=== PATIENT | female | born 1995 | race Caucasian/White ===

== ENCOUNTER 2018-11-01 11:03 | Outpatient (REF) | payer MEDICAID, SELFPAY ==
--- NOTE | 2018-11-01 10:45 | PAPFT_PTH ---
PATIENT: Karla Garcia LOC: [facility] U#:[id number] AGE/SX: 23/F ROOM: RE11/01/[address]: BRIAN Woody : 1995 BED: DIS: 11/01/2018 SPEC #: [id number] RECD: 11/01/18 17:38 STATUS: TIFFANY RERober #: [id number] ERIK: 11/01/18 10:[address]: Christina Pryor DEPT: [facility] Cytology RECD BY: Izabela Barragan ENTERED: 11/01/18 17:39 SP TYPE: PAPFT DARIUS DR: Fernanda Michael APRN Tissues: 1 - CX/ENDOCX FOR PAP SMEARS Procedures: PAP THIN PREP/UVM Screening Comments: [id number]
== END 2018-11-01 11:23 ==
LOC: LBN 11:03
PROVIDERS: PCP Nurse Practitioner; Visit Provider Nurse Practitioner Family
DX: Z12.4 Encounter for screening for malignant neoplasm of cervix (principal)
CPT/HCPCS: 88142

== ENCOUNTER 2019-01-30 17:33 | Emergency (ER) | payer MEDICAID, SELFPAY ==
[2019-01-30 17:38] VITALS: BP 125/76; PULSE 87; RESP 16; O2SAT 99
[2019-01-30 18:16] LABS: Abs Immature Grans 0.01 k/cumm (0.0-0.09); Absolute Basophil Count 0.04 k/cumm (0.0-0.2); Absolute Eosinophil Count 0.38 k/cumm (0.0-0.7); Absolute Lymphocyte Count 1.89 k/cumm (1.2-3.4); Absolute Monocyte Count 0.46 k/cumm (0.11-0.7); Absolute Neutrophil Count 4.44 k/cumm (1.2-6.7); Basophils % 0.6; Eosinophils % 5.3; HCT 39.7 % (36.0-46.0); HGB 13.4 g/dL (12.0-15.5); Immature Grans % 0.1; Lymphocytes % 26.2; Mean Corp. HGB Concentration 33.8 g/dL (32.0-36.0); Mean Corpuscular Hemoglobin 28.9 pg (27.0-33.0); Mean Corpuscular Volume 85.6 fL (80-95); Mean Platelet Volume 10.8 fL (8.0-11.0); Monocytes % 6.4; Neutrophils % 61.4; Platelet Count 315 x1000/uL (130-400); RBC 4.64 m/cumm (4.00-5.20); White Blood Cell Count 7.22 k/cumm (4.4-10.8)
--- NOTE | 2019-01-30 18:30 | W.ED.GENAD ---
Discharge Plan Disposition Patient Disposition: HOME Condition: Stable Discharge Details Chief Complaint: TIN DIPPER Clinical Impression: Vaginal bleeding in Primary Care Provider: Fernanda Michael ED Provider: Jo Castillo Home Meds and New Rx's Prescriptions: No Action No Known Home Meds RF: 0 Discharge Instructions Instructions: Miscarriage (ED), Threatened Miscarriage (ED) Additional Instructions: Please return immediately to the emergency department if you develop any new or worsening symptoms or if you become otherwise concerned. It is extremely important that you call as soon as possible to make an appointment to be seen in follow-up for this visit by your human resources support specialist. Referrals: Teena Sandoval MD [ [facility] STAFF PHYSICIAN] - Discharge Data Discharge Date/Time-TO BE ENTERED AT DEPARTURE: 01/30/19 19:50 Medical Decision Making Karla Whipple is a 23-year-old woman without history of medical problems who presented to the emergency department with positive test 1 week ago, last menstrual. 5 weeks ago, now with vaginal bleeding that began this morning equivalent to her typical., Also with lower abdominal cramping typical of her usual menstrual cramps. On exam patient is very well and nontoxic appearing. She has a benign cardiopulmonary exam. Abdominal exam is benign, nontender to palpation. Concern for threatened versus ectopic. Plan for screening labs. hCG 18. Bedside [id number] ultrasound FAST exam negative for free fluid, ultrasound shows thickened endometrial stripe without gestational sac, adnexa unable to be visualized transabdominally. I discussed the patient presentation, exam, and results with Dr. Sandoval of obstetrics who recommended outpatient follow-up, very low suspicion for ectopic at this point, emergent transvaginal ultrasound not essential and very unlikely to be diagnostic. I discussed transvaginal ultrasound with the patient, who refuses pelvic exam/transvaginal ultrasound at this time and would prefer to follow-up as an outpatient. I discussed the risks of potential ectopic, patient verbalized understanding the risks and continue to refuse. I had a lengthy discussion with the patient regarding return to emergency department precautions, importance of outpatient follow-up with collar feller, and home care. Patient verbalized understanding of the plan and was amenable. All questions were answered. Patient was discharged home with clear plan for outpatient follow-up. Medical Records Medical records reviewed: Yes I reviewed the patient's medical records. Lab Data Lab results reviewed: Yes I reviewed the patient's lab results. Labs: Laboratory Tests Range/Units 01/30/19 01/30/19 01/30/19 18:06 18:06 18:06 WBC (4.4-10.8) k/cumm 7.22 RBC (4.00-5.20) m/cumm 4.64 Hgb (12.0-15.5) g/dL 13.4 Hct (36.0-46.0) % 39.7 MCV (80-95) fL 85.6 MCH (27.0-33.0) pg 28.9 MCHC (32.0-36.0) g/dL 33.8 RDW (11.7-14.6) % 13.0 Plt Count (130-400) x1000/uL 315 MPV (8.0-11.0) fL 10.8 Immature Gran % 0.1 Neutrophils % 61.4 Lymphocytes % 26.2 Monocytes % 6.4 Eosinophils % 5.3 Basophils % 0.6 Absolute Neutrophils (1.2-6.7) k/cumm 4.44 Absolute Lymphocytes (1.2-3.4) k/cumm 1.89 Absolute Monocytes (0.11-0.7) k/cumm 0.46 Absolute Eosinophils (0.0-0.7) k/cumm 0.38 Absolute Basophils (0.0-0.2) k/cumm 0.04 Beta HCG, Quant (1-3) mIU/mL 18 H Patient ABO/Rh B Positive Antibody Screen Negative HPI General Mode of arrival: ambulatory. Date/Time Provider Initiated Documentation: 01/30/19 17:54. Limitations to Documentation: no limitations. Information obtained by: patient, family, RN notes reviewed and old records reviewed. HPI Narrative: Karla Whipple is a 23-year-old woman presenting to the emergency department with vaginal bleeding. Patient reports that her last menstrual period was 5 weeks ago. Patient states that she had a positive test 1 week ago. She has not had an ultrasound performed at this point. Patient reports that she woke up this morning and had vaginal bleeding. She has gone through 1.5 pads. Patient reports that flow is equal to her usual periods. Patient reports that she has also had some mild lower back pain and lower abdominal cramping, that feel very similar to menstrual cramps, not worse in severity than her typical menstrual cramps. She denies any other pain or any other symptoms. She has a 2-year-old at home, no other pregnancies. No recent illnesses. Has been eating and drinking as usual. Related Data Home Medications Medication Instructions Recorded Confirmed Unknown [No Known Home Meds] 01/30/19 01/30/19 Allergies Allergy/AdvReac Type Severity Reaction Status Date / Time No Known Allergies Allergy Verified 01/30/19 17:42 General Stated Complaint: TIN DIPPER DHIRAJ: 3 Review of Systems Narrative: Constitutional: denies fevers Eyes: denies eye pain ENT: denies facial pain, dental pain, sore throat Cardiovascular: denies chest pain, edema Respiratory: denies SOB, cough GI: denies vomiting, diarrhea, reports lower abdominal cramping : denies flank pain, reports vaginal bleeding MSK: denies neck pain, arthralgias, myalgias, reports mild lower back pain Skin: denies rash Neuro: denies headaches, numbness, weakness [facility] Medical History Contraception (Resolved 04/04/14) Encounter for supervision of normal primigravida in third trimester, antepartum (Resolved 06/21/16) Hx of urinary tract infection (Resolved 06/21/16) IUD check up (Resolved 11/02/16) IUD surveillance (Resolved 10/31/17) Social History Smoking/Tobacco Use Status: Never Alcohol Intake: current Alcohol Intake frequency: a few times a month Drug use: Never Substance use type: does not use Household members: significant other and children Housing: apartment Number of Children: 1 current occupation: deli Pets and animals: Yes (currently cats have flees bites on pts arms. she says they have had them all summer. ) Pets and animals: cat(s) Working smoke detector in home: Yes Fire extinguisher in home: Yes Carbon monox detector in home: Yes Firearms in home: Yes Firearms unloaded and locked: No (top shelf of closet ) Do you feel safe in your relationship?: Yes History History 1 Para 1 Hx # Term Pregnancies Multiple births Hx # Pregnancies Ectopic pregnancies AB induced Hx Number of Living Children AB spontaneous Exam Narrative Exam Narrative: Constitutional: well and [id number], pleasant, conversing normally HENT: head atraumatic/normocephalic/normal inspection, mucous membranes moist Eyes: conjunctiva normal, sclera normal, pupils 3mm b/l Neck: no stridor, normal ROM, trachea midline Chest: normal inspection Resp: normal work of breathing, LCTAB Cardio: normal rate, normal rhythm, no murmur appreciated GI: abdomen soft, non-tender, non-distended Back: normal inspection, no rash, nontender to palpation Skin: warm, dry, normal color, no rash Neuro: alert, not altered, grossly non-focal, normal tone Ext: no edema, no posterior calf tenderness to palpation Psych: normal mood, normal affect, normal behavior Course Vital Signs Vital signs: Vital Signs Pulse 87 01/30/19 17:38 Respiratory Rate 16 01/30/19 17:38 Blood Pressure 125/76 01/30/19 17:38 Pulse Oximetry 99 01/30/19 17:38 Temperature Source Skin 01/30/19 17:38 Pulse 87 01/30/19 17:38 Respiratory Rate 16 01/30/19 17:38 Respiratory Effort 01/30/19 17:42 Blood Pressure 125/76 01/30/19 17:38 Blood Pressure Position Sitting 01/30/19 17:38 Pulse Oximetry 99 01/30/19 17:38 Oxygen Delivery Method Room Air 01/30/19 17:38 Oxygen Flow Rate 0 01/30/19 17:38 Pain Level 4 01/30/19 17:38 Lab/Test Results Lab/Test Results: Laboratory Tests Range/Units 01/30/19 18:06 WBC (4.4-10.8) k/cumm 7.22 RBC (4.00-5.20) m/cumm 4.64 Hgb (12.0-15.5) g/dL 13.4 Hct (36.0-46.0) % 39.7 MCV (80-95) fL 85.6 MCH (27.0-33.0) pg 28.9 MCHC (32.0-36.0) g/dL 33.8 RDW (11.7-14.6) % 13.0 Plt Count (130-400) x1000/uL 315 MPV (8.0-11.0) fL 10.8 Immature Gran % 0.1 Neutrophils % 61.4 Lymphocytes % 26.2 Monocytes % 6.4 Eosinophils % 5.3 Basophils % 0.6 Absolute Neutrophils (1.2-6.7) k/cumm 4.44 Absolute Lymphocytes (1.2-3.4) k/cumm 1.89 Absolute Monocytes (0.11-0.7) k/cumm 0.46 Absolute Eosinophils (0.0-0.7) k/cumm 0.38 Absolute Basophils (0.0-0.2) k/cumm 0.04
[2019-01-30 18:37] LABS: HCG Quant, Pregnancy 18 mIU/mL (1-3)
--- NOTE | 2019-01-30 19:05 | NUR.NOTE ---
Assumed care of pt. . Sitting in bed in NAD. reports continued 07/11 abd cramping.
[2019-01-30 19:53] VITALS: BP 112/67; PULSE 91; RESP 16; O2SAT 99
--- NOTE | 2019-01-30 19:54 | NUR.NOTE ---
IV removed. discharge instructions reviewed with verbal understanding. aware to f/u with OB, return for worsening symptoms. Ambulated to exit with steady gait.
== END 2019-01-30 19:50 | disposition home or self-care (01) ==
PROVIDERS: Emergency Provider Student in an Organized Health Care Education/Training Program; PCP Nurse Practitioner
DX: O20.9 Hemorrhage in early pregnancy, unspecified (principal); Z3A.00 Weeks of gestation of pregnancy not specified
CPT/HCPCS: 36415; 86850; 86900; 86901; 99283; 84702; 85025

== ENCOUNTER 2019-05-20 06:48 | Outpatient (CLI) | payer MEDICAID, SELFPAY ==
--- NOTE | 2019-05-20 14:30 | DI.US_ITS ---
EXAM: US BREAST RT COMPLETE CLINICAL HISTORY: 3 CM LUMP AT 9 O'CLOCK BY NIPPLE, N63.10 LUMP RT BREAST TECHNIQUE: Ultrasound performed using standard protocol. COMPARISON: OB US 2-3 TRIMESTER TRANSABD*P from 03/07/2016 FINDINGS: There is a complex cystic lesion at the 9 o'clock position of the right breast 3 centimeters from the nipple corresponding to the palpable abnormality. There is posterior acoustic enhancement. No inte rnal blood flow is seen. Mass measures 2.3 x 1.1 x 1.9 centimeters. It is radially oriented. IMPRESSION: Differential considerations include fibroadenoma, abscess, resolving hematoma among other etiologies. A follow-up right breast ultrasound in 2-3 weeks is recommended for re-evaluation. Findings were discussed with the primary care physician and the patient on the date of the exammelyssa mcelroy
== END 2019-05-20 07:08 ==
PROVIDERS: PCP Nurse Practitioner; Visit Provider Nurse Practitioner Women's Health
DX: N63.11 Unspecified lump in the right breast, upper outer quadrant (principal)
CPT/HCPCS: 76642

== ENCOUNTER 2019-06-12 02:48 | Outpatient (CLI) | payer MEDICAID, SELFPAY ==
--- NOTE | 2019-06-12 10:45 | DI.US_ITS ---
EXAM: US BREAST RT COMPLETE CLINICAL HISTORY: Repeat US of R breast mass, N63.10-unspecified lump in rt breast TECHNIQUE: Ultrasound right breast performed using standard protocol. COMPARISON: US BREAST RT COMPLETE from 05/20/2019 FINDINGS: There has been a mild interval increase in size of previously noted mass in the 9 o'clock position of the right breast, 3 centimeters from the nipple. And now measures 2.7 x 1.1 x 2.3 cm compared with 2.3 x 1.1 x 1.9 cm on the previous exam. The appearance is unchanged, with multiple cystic and solid areas. There is now blood flow demonstrated to the lesion. There is no shadowing. The borders paige ear lobulated. There is increased through transmission. IMPRESSION: Mild interval increase in size of previously noted mass in the lateral right breast. Biopsy should be considered. BI-RADS Cat 4 - Suspicious Abnormality: Biopsy should be considered. DATA REPOSITORY:
== END 2019-06-12 03:08 ==
PROVIDERS: PCP Nurse Practitioner; Visit Provider Nurse Practitioner Women's Health
DX: N63.11 Unspecified lump in the right breast, upper outer quadrant (principal)
CPT/HCPCS: 76642

== ENCOUNTER 2019-06-19 02:02 | Outpatient (CLI) | payer MEDICAID, SELFPAY ==
--- NOTE | 2019-06-19 | DI.US_ITS ---
EXAM: US NEEDLE LOCAL BREAST WO RAD CLINICAL HISTORY: F/U ABNL MAMMO AND US, BREAST MASS, ULTRASOUND GUIDED BIOPSY TECHNIQUE: Ultrasound performed using standard protocol. COMPARISON: US BREAST RT COMPLETE from 06/12/2019 FINDINGS: Ultrasound guidance was utilized by Dr. Christopher during biopsy of right breast lesion. Please see Dr. Christopher procedure note. IMPRESSION: DATA REPOSITORY:
--- NOTE | 2019-06-19 12:08 | BREAST_PTH ---
PATIENT: Karla Garcia LOC: [facility] U#:[id number] AGE/SX: 24/F ROOM: RE06/19/[address]: Khloe Christopher MD : 1995 BED: DIS: 06/19/2019 SPEC #: [id number] RECD: 06/19/19 12:50 STATUS: TIFFANY RERober #: [id number] ERIK: 06/19/19 12:[address]: Khloe Christopher DEPT: Surgical Specimen RECD BY: Izabela Barragan ENTERED: 06/19/19 12:54 SP TYPE: Breast OTHR DR: Fernanda Michael APRN Tissues: 1 - BREAST BX NEEDLE Procedures: GROSS AND MICRO LEVEL 4 IMMUNOPEROXIDASE STAIN Comments: [id number]
--- NOTE | 2019-06-19 13:33 | OPPNE_ITS ---
Date of service: 06/19/19 Time of Service: 12:00 Procedure Note Date of procedure: 06/19/19 Procedure: Right Breast Core needle biopsy under US guidence Surgeon/Proceduralist/Physician: Khloe Christopher Procedure Diagnosis: same Procedure Indications: Mrs. Whipple is a pleasant 24 year old female who noted a fullness in her right Breast. US was done which was read as a Category 4 due to the size of the lesion and the fact that it had blood flow. The patient has a remote family history of Breast cancer in her maternal Great- grandmother. Her mother has been diagnosed with thyroid cancer and lung cancer. The procedure was explained in detail. Risks, benefits and complications were reviewed. Questions were entertained and answered to her satisfaction and she wished to proceed. NO guarantees were given or implied. Procedure Description: After informed consent was obtained the patient was placed in a supine position on the bed in the US room. The Volunteer Recruitment Coordinator ultrasounded the right breast. The Lesion measured about 3 cm in size and had both solid and cystic properties. A time out was done and the patients name, , procedure to be done and site were reviewed. Next the skin was cleaned with chlorhexidine and the dermis and subcutaneous tissue was injected with 1% Lidocaine. A small incision was made with an 11 blade scalpel. A 14 gauge core needle biopsy needle was carefully inserted into the skin incision and advanced under US guidence to the lesion. The biopsy needle was deployed and the tissue was removed and placed on a piece of telfa. The needle was placed two more times into the lesion at different sites and deployed. The tissue was placed on the telfa. Next a small titanium clip was placed into the lesion under US guidance. The piece of telfa with the core biopsy specimens was placed in formalin and sent to pathology. The skin was cleaned and dried and a band-aid was applied. The patient tolerated the procedure well. She was allowed to slowly sit up and get dressed.
== END 2019-06-19 02:22 ==
PROVIDERS: PCP Nurse Practitioner; Visit Provider Surgery
DX: D24.1 Benign neoplasm of right breast (principal)
CPT/HCPCS: 19083; 76942; 88305; 88361

== ENCOUNTER 2019-07-24 00:44 | Day surgery (SDC) | payer MEDICAID, SELFPAY ==
--- NOTE | 2019-07-24 06:31 | W.PM.HP.N ---
Date of service: 07/24/19 Time of Service: 08:00 Assessment and Plan Assessment and plan (1) Breast mass, right: Status: Acute Assessment and plan: A\\ 24 year old female with a right Breast mass. Core needle biopsy could not exclude potential malignanat Phylloides tumor. Needle localized excisional biopsy was recommended. P\\ Needle localized excisional biopsy of right Breast mass Risks, benefits, complications were reviewed with the patient. Complications include but are not limited to bleeding, pain, infection, seroma, hematoma, wound dehiscence, need for further surgery for clear margins if the mass is malignant and adverse reaction to the medications. Questions were entertained and answered to her satisfaction and she wished to proceed. No guarantees were given or implied. History of Present Illness Narrative: Mrs. Whipple is a pleasant 24 year old female who noted a fullness in her right Breast. US was done which was read as a Category 4 due to the size of the lesion and the fact that it had blood flow. The patient has a remote family history of Breast cancer in her maternal Great-grandmother. Her mother has been diagnosed with thyroid cancer and lung cancer. Core needle biopsy on 06/19/19 could not rule out malignant phyloides tumor. Thye case was discussed with a Breast specialist at [facility] who agreed with recommendation of excisional biopsy. Recommendation of needle localized excisional biopsy was discussed with Mrs. Whipple over the phone and she agreed to proceed. Review of Systems Constitutional Constitutional: Denies fever(s), Denies night sweats and Denies weight loss Eyes Eyes: Denies change in vision ENT Ears, Nose, Mouth, and Throat: Denies change in voice Cardiovascular Cardiovascular: Denies chest pain, Denies chest pain at rest, Denies irregular heart rhythm, Denies palpitations and Denies dyspnea Respiratory Respiratory: Denies chest congestion, Denies cough and Denies dyspnea Gastrointestinal Gastrointestinal: Reports system reviewed and no additional complaints, except as documented Genitourinary Genitourinary: Reports system reviewed and no additional complaints, except as documented Integumentary/Breasts Skin/Breast: Reports as per HPI Endocrine Endocrine: Denies palpitations [facility] Medical History (Updated 07/24/19 @ 07:13 by Kimberli Rai) Breast mass (Resolved) Contraception (Inactive 04/04/14) Encounter for supervision of normal primigravida in third trimester, antepartum (Resolved 06/21/16) Hx of urinary tract infection (Resolved 06/21/16) Miscarriage within last 12 months (Acute) Surgical History History of wisdom tooth extraction (Acute) Hx of right breast biopsy (Acute) Family History Grandmother Endometriosis MGM Father Alcohol abuse Brother Mental disorder Mother Renal cancer Yfvs-Vgtu-Hkok syndrome Thyroid cancer Social History Smoking/Tobacco Use Status: Current-Occasional Alcohol Intake: never Drug use: Never Substance use type: does not use Household members: significant other and children Housing: apartment Number of Children: 1 current occupation: deli Pets and animals: Yes (currently cats have flees bites on pts arms. she says they have had them all summer. ) Pets and animals: cat(s) Working smoke detector in home: Yes Fire extinguisher in home: Yes Carbon monox detector in home: Yes Firearms in home: Yes Firearms unloaded and locked: No (top shelf of closet ) Do you feel safe at home: Yes Do you feel safe in your relationship?: Yes History History 1 Para 1 Hx # Term Pregnancies Multiple births Hx # Pregnancies Ectopic pregnancies AB induced Hx Number of Living Children AB spontaneous Meds Home Medications and Allergies Home Medications Medication Instructions Recorded Confirmed Type norgestimate 0.25 mg-ethinyl 1 tab PO DAILY #84 tab 05/15/19 07/24/19 Rx estradiol 35 mcg tablet acetaminophen [Tylenol] 650 mg PO Q6H PRN #30 tab 07/24/19 Rx ibuprofen 600 mg PO Q6H PRN #30 tab 07/24/19 Rx tramadol 50 mg PO Q6H PRN #14 tab 07/24/19 Rx Allergies Allergy/AdvReac Type Severity Reaction Status Date / Time No Known Allergies Allergy Verified 07/23/19 09:50 Exam Const General: comfortable and no acute distress HENMT Head: normocephalic and atraumatic Chest Chest: normal inspection of the chest Breast inspection: normal inspection of the breasts Breast palpation: no axillary lymphadenopathy and abnormal palpation of the breast Resp Effort & Inspection: normal respiratory effort Auscultation: clear to auscultation bilaterally Cardio Rate: regular rate Rhythm: regular rhythm Heart Sounds: no gallops, no murmurs and no rubs COVID-19 Screening Traveled to [place] from one of the affected countries or regions?: NO Recent travel in the [facility] within the last 8 weeks?: No Recent out of the country travel within the last 8 weeks?: No Exposure or possible exposure to illness during travel?: No Had IN PERSON contact w/suspected or confirmed C-19 person: No Have you had the following symptoms in the past few days?: No
--- NOTE | 2019-07-24 06:40 | W.PM.DSUDISC ---
Discharge Plan Disposition Patient Disposition: HOME Condition: Good Discharge Details Reason For Visit: Needle localized excisional biopsy of right breast Attending Provider: Khloe Christopher Primary Care Provider: Ant Garcia Home Meds and New Rx's Prescriptions: New acetaminophen [Tylenol] 325 mg tablet 650 mg PO Q6H PRN (Reason: pain) Qty: 30 RF: 0 ibuprofen 600 mg tablet 600 mg PO Q6H PRN (Reason: pain) Qty: 30 RF: 0 tramadol 50 mg tablet 50 mg PO Q6H PRN (Reason: pain) Qty: 14 RF: 0 Continued norgestimate-ethinyl estradiol [Sprintec (28)] 0.25-35 mg-mcg tablet 1 tab PO DAILY Qty: 84 RF: 5 Discharge Instructions Instructions: Breast Lumpectomy (DC) Additional Instructions: Activity at Home after surgery: 1. Make sure you walk outside at least 4 times per day 2. You should be able to climb a flight of stairs 3. No driving while in pain or taking pain medications 4. Activity as tolerated Diet, Nutrition, & wound healin. Avoid alcohol until after you are recovered from your surgery 2. Make sure to eat plenty of lean protein (meat, fish, eggs, cottage cheese, beans) 3. Eat a variety of fruits and vegetables. Eat plenty of high fiber foods to avoid constipation. 4. Drink plenty of liquids to stay hydrated and avoid constipation Pain Medications: 1. Tylenol 650 mg every 6 hours as needed and Ibuprofen 600 mg every 6 hours as needed. May alternate between the two every 3 hours 2. If a narcotic has been prescribed take as directed only for breakthrough pain For Constipation: 1. Take Milk of Magnesia or MiraLax as needed for constipation Other: 1. You may shower daily. Do not scrub the incisions 2. Do not soak the incisions for 1 week 3. You may alternate ice and heat as needed for pain and swelling Wound Care: 1. Keep the incisions clean and dry Please call our office if you develop: 1. Fevers >101.5 2. Nausea or Vomiting 3. Worsening pain 4. Redness and thick discharge from the wounds If after hours please call the Hospital at and ask to speak to the on-call surgeon Referrals: Khloe Christopher MD [ [facility] STAFF PHYSICIAN] - 08/09/19 9:30 am Activity:: Activity as Tolerated Diet:: As Tolerated Discharge Orders Discharge Orders: Discharge Order (Routine); Ordered 07/24/19 Ordered By: Khloe Christopher DS: Diagnosis Discharge Diagnosis (1) Breast mass, right: Status: Acute
[2019-07-24 07:16] VITALS: BP 115/81; PULSE 87; RESP 16; TEMP 36.5; O2SAT 98
[2019-07-24] MEDS: Celecoxib 200 MG CAP PO (07:30)
[2019-07-24] MEDS: Acetaminophen 500 MG TAB 1000 MG PO (07:30)
[2019-07-24] MEDS: Lactated Ringers 1,000 ML 80 ML IV (07:53)
--- NOTE | 2019-07-24 08:01 | W.PM.OP ---
Date of service: 07/24/19 Time of Service: 10:10 Operative Note Operative Note DATE OF PROCEDURE: 07/24/19 PRE-OP DIAGNOSIS: Right Breast Mass POST-OP DIAGNOSIS: same PROCEDURE: Needle localized Right Breast excisional biopsy SURGEON: Khloe Christopher NEW CLIENT BANKING SERVICES CLERK: Yane Terry ANESTHESIA: MAC (ASA 2/ Mauro Barros CRNA), regional (ES block) and local (Exparel and 0.25% bupivocaine mixed 50/50) PATHOLOGY: other (Breast tissue) COMPLICATIONS: None Patient was transported to: PACU Patient's condition: stable Indications: Mrs. Whipple is a pleasant 24 year old female with a right Breast mass. Core needle bipsy could not rule out a phylloides tumor so excisional biopsy was recommended. Risks, benefits and complications were reviewed with the patient. Questions were entertained and answered to their satisfaction and wished to proceed. No guarantees were given or implied. Findings: Us guided needle localization Mammogram of specimen showed the previously placed clip as well as the wire within the specimen Procedure Description: After informed consent was obtained from the patient and she was taken back to the operating room and placed in the supine position on the operating room table. The patient had an ES block done on the right side for postoperative pain control and was then placed under MAC sedation. The Breast was prepped with Chlorhexidine and 2 % Lidocaine was injected into the dermis. Next with the assistance of the automatic profile sander operator a 10 cm wire was placed into the right breast lesion making sure that the tip of the wire was passed the lesion itself. Next the right chest wall, axilla and arm were all prepped and draped in a sterile surgical fashion. At this point a timeout was done. The patient's name, date of , allergies to medications, procedure to be done, site of surgery and antibiotic prophylaxis were all reviewed. Fire risk was assessed. At this point Exparel and bupivacaine was injected into the dermis at the entrance of the wire. A 5 cm incision was made along the areola with a 15 blade. Dissection was done with cautery to the wire entrance into the lesion. The wire was grasped with a hemostat and pulled through the skin. Using cautery the tissue was dissected around the needle down to the pectoralis muscle. The dissection was taken down to the chest wall and dissected away from the fascia. Once the breast tissue was completely dissected it was marked with a single suture at 3 o'clockl and a double suture at 6 o'clock. The wire was anterior superior. The specimen was then sent to radiology where a mammogram picture was taken. It showed the the previously placed clip in the lesion as well as the wire within the lesion. The specimen was brought back to the operating room and placed in formalin for pathology. The cavity was irrigated with some normal saline and dried. Small areas of bleeding were identified and these were stopped using cautery. The cavity was inspected again and no bleeding was noted. The rest of the local anesthetic mixture was injected around the cavity. The cavity was sprayed with Suzi. The incision was then closed with 3-0 Vicryl interrupted subdermal sutures. The dermis was closed with a continuous 4-0 Vicryl suture. The skin was cleaned and dried and skin affix was applied. The patient was slowly woken up and taken back to [facility] in stable condition. Sponge, instruments and needles were correct at the end of the case x2. There were no immediate complications.
[2019-07-24] MEDS: ceFAZolin 2 GM/50 ML BAG IVPB (08:30)
[2019-07-24] MEDS: Lidocaine 2% Multi-Dose 50 ML VIAL (08:46)
--- NOTE | 2019-07-24 08:57 | DI.MAMMO_ITS ---
EXAM: MG MAMMO SPECIMEN CLINICAL HISTORY: RIGHT BREAST MASS FINDINGS: Specimen radiograph was performed and shows localization wire in place, a biopsy clip is also present in the specimen. The ultrasonographically identified mass seen on recent ultrasound examinations is not clearly visualized mammographically. Category Density
[2019-07-24] MEDS: Bupivacaine 0.25% Pres-Free 10 ML VIAL (09:13)
[2019-07-24] MEDS: Bupivacaine LIPOSOME/PF 133 MG/10 ML VIAL IJ (09:13)
--- NOTE | 2019-07-24 09:19 | DI.US_ITS ---
EXAM: US NEEDLE LOCAL BREAST WO RAD CLINICAL HISTORY: ULTRASOUND GUIDED BIOPSY OF BREAST MASS. FINDINGS: Ultrasound was provided in the OR for guidance with needle localization procedure. Please see proce mariaae note for details. COMPARISON: US NEEDLE LOCAL BREAST WO RAD from 06/19/2019
--- NOTE | 2019-07-24 09:37 | BREAST_PTH ---
PATIENT: Karla Garcia LOC: [facility] U#:[id number] AGE/SX: 24/F ROOM: RE07/24/[address]: Khloe Christopher MD : 1995 BED: DIS: 07/24/2019 SPEC #: [id number] RECD: 07/25/19 12:41 STATUS: TIFFANY REQ #: [id number] ERIK: 07/24/19 09:[address]: Khloe Christopher DEPT: Surgical Specimen RECD BY: Miguel Hilliard ENTERED: 07/25/19 12:46 SP TYPE: Breast OTHR DR: Ant Garcia DO Tissues: 1 - BREAST INCISION/EXCISION Procedures: IMMUNOPEROXIDASE STAIN GROSS AND MICRO LEVEL 5 Comments: [id number]
[2019-07-24 10:45] VITALS: BP 104/71; PULSE 72; RESP 16; TEMP 36.5; O2SAT 100
== END 2019-07-24 11:10 | disposition home or self-care (01) ==
PROVIDERS: PCP Family Medicine; Visit Provider Surgery
PROC: (CPT 19101; principal; 2019-07-24 08:00)
DX: D24.1 Benign neoplasm of right breast (principal); N60.11 Diffuse cystic mastopathy of right breast; Z80.1 Family history of malignant neoplasm of trachea, bronchus and lung; Z80.8 Family history of malignant neoplasm of other organs or systems
CPT/HCPCS: 19101; 19285; 76942; 77061; 77065; NC; 88307; 88361; G0279; J0690; J1100; J1200; J1885; J2001; J2250; J2405; J3010

== ENCOUNTER 2019-10-23 03:52 | Outpatient (CLI) | payer MEDICAID, SELFPAY ==
[2019-10-23 12:08] LABS: Kit/Specimen SENT
[2019-10-23 12:18] LABS: Abs Immature Grans 0.02 k/cumm (0.0-0.09); Absolute Basophil Count 0.02 k/cumm (0.0-0.2); Absolute Eosinophil Count 0.19 k/cumm (0.0-0.7); Absolute Lymphocyte Count 1.15 k/cumm (1.2-3.4); Absolute Monocyte Count 0.33 k/cumm (0.11-0.7); Absolute Neutrophil Count 6.22 k/cumm (1.2-6.7); Basophils % 0.3; Eosinophils % 2.4; HCT 36.9 % (36.0-46.0); HGB 12.6 g/dL (12.0-15.5); Immature Grans % 0.3 %; Lymphocytes % 14.5; Mean Corp. HGB Concentration 34.1 g/dL (32.0-36.0); Mean Corpuscular Hemoglobin 29.3 pg (27.0-33.0); Mean Corpuscular Volume 85.8 fL (80-95); Mean Platelet Volume 10.9 fL (8.0-11.0); Monocytes % 4.2; Neutrophils % 78.3; Platelet Count 274 x1000/uL (130-400); RBC Distribution Width 12.9 % (11.7-14.6); White Blood Cell Count 7.93 k/cumm (4.4-10.8)
[2019-10-23 12:59] LABS: TSH (W/Ref FT4) 2.19 uIU/mL (0.36-3.74)
[2019-10-24 09:59] LABS: Varicella IgG Antibody Negative (See Note)
[2019-10-24 10:03] LABS: Rubella IgG Ab (UVM) Positive (See Note)
[2019-10-24 13:22] LABS: Hepatitis B Surface Ag Negative (Negative)
[2019-10-24 13:35] LABS: Hepatitis C Ab w Rflx HCV PCR Negative (Negative)
[2019-10-24 13:59] LABS: HIV-1/2 Ag & Ab Screen Negative (Negative)
[2019-10-25 10:36] LABS: Syphilis Total Ab w/Reflex Nonreactive (Nonreactive)
== END 2019-10-23 04:12 ==
PROVIDERS: PCP Family Medicine; Visit Provider Advanced Practice Midwife
DX: Z34.91 Encounter for supervision of normal pregnancy, unspecified, first trimester (principal); Z3A.13 13 weeks gestation of pregnancy
CPT/HCPCS: 86787; 86803; 86850; 86900; 86901; 87340; 87389; 84443; 85025; 86762; 86780

== ENCOUNTER 2019-10-23 13:39 | Outpatient (REF) | payer MEDICAID, SELFPAY ==
[2019-10-23 15:01] LABS: *AMPHETAMINES SCREEN URINE Negative (Negative); *BARBITURATES SCREEN URINE Negative (Negative); *BENZODIAZEPINES SCREEN URINE Negative (Negative); Cannabinoids THC Negative (Negative); Cocaine Screen,Urine Negative (Negative); METHADONE URINE SCREEN Negative (Negative); OPIATES URINE SCREEN Negative (Negative)
[2019-10-23 15:03] LABS: Tricyclic Antidepressants Negative (Negative)
[2019-10-29 14:16] LABS: Buprenorphine Negative; Norbuprenorphine Negative
== END 2019-10-23 13:59 ==
LOC: LBN 13:39
PROVIDERS: PCP Family Medicine; Visit Provider Advanced Practice Midwife
DX: Z34.91 Encounter for supervision of normal pregnancy, unspecified, first trimester (principal); Z3A.13 13 weeks gestation of pregnancy
CPT/HCPCS: 80307; 87077; 87086; 87186

== ENCOUNTER 2019-11-28 02:16 | Outpatient (CLI) | payer MEDICAID, SELFPAY ==
--- NOTE | 2019-11-28 07:30 | DI.US_ITS ---
EXAM: US OB 2-3 TRIMESTER CLINICAL HISTORY: 18 wk anatomy survey,Z3A.13 TECHNIQUE: Ultrasound performed using standard protocol. COMPARISON: US US NEEDLE LOCAL BREAST WO RAD from 07/24/2019 FINDINGS: Ob ultrasound was performed utilizing 2nd trimester protocol. biometry is consistent with a ge stational age of 18 weeks 2 days and an EDC April 28, 2020. Placenta is posterior with no evidence of placenta previa. There is visually a normal quantity of am niotic fluid. heart rate is 139 BPM. anomaly screen is within normal limits as per the attached checklist. IMPRESSION: DATA REPOSITORY:
== END 2019-11-28 02:36 ==
PROVIDERS: PCP Family Medicine; Visit Provider Advanced Practice Midwife
DX: Z34.92 Encounter for supervision of normal pregnancy, unspecified, second trimester (principal)
CPT/HCPCS: 76805

== ENCOUNTER 2020-02-05 13:41 | Outpatient (CLI) | payer MEDICAID, SELFPAY ==
[2020-02-05 13:57] LABS: HCT 31.8 % (36.0-46.0); HGB 10.3 g/dL (11.2-15.7); MCH 28.5 pg (27.0-33.0); MCHC 32.4 % (32.0-36.0); MCV 88.1 fL (80-95); MPV 10.4 fL (8.0-11.0); Platelet Count 284 10^3/uL (130-400); RBC 3.61 10^6/uL (3.93-5.22); RDW-SD 38.9 fL; WBC 10.54 10^3/uL (4.4-10.8)
[2020-02-05 14:07] LABS: Glucose,1 Hr (Glucola) 91 mg/dL (80-140)
== END 2020-02-05 14:01 ==
PROVIDERS: PCP Family Medicine; Visit Provider Advanced Practice Midwife
DX: Z34.93 Encounter for supervision of normal pregnancy, unspecified, third trimester (principal)
CPT/HCPCS: 36415; 82950; 85027

== ENCOUNTER 2020-04-02 16:18 | Outpatient (REF) | payer MEDICAID, SELFPAY ==
[2020-04-02 17:21] LABS: *AMPHETAMINES SCREEN URINE Negative (Negative); *BARBITURATES SCREEN URINE Negative (Negative); *BENZODIAZEPINES SCREEN URINE Negative (Negative); Cannabinoids THC Negative (Negative); Cocaine Screen,Urine Negative (Negative); METHADONE URINE SCREEN Negative (Negative); OPIATES URINE SCREEN Negative (Negative)
[2020-04-02 17:26] LABS: Tricyclic Antidepressants Negative (Negative)
[2020-04-12 12:24] LABS: Buprenorphine Negative
== END 2020-04-02 16:38 ==
LOC: LBN 16:18
PROVIDERS: PCP Family Medicine; Visit Provider Advanced Practice Midwife
DX: Z34.93 Encounter for supervision of normal pregnancy, unspecified, third trimester (principal)
CPT/HCPCS: 80307; 87081

== ENCOUNTER 2020-04-10 16:28 | Outpatient (CLI) | payer MEDICAID, SELFPAY ==
[2020-04-10 19:00] VITALS: BP 114/75; PULSE 105
[2020-04-10 19:01] VITALS: BP 114/75; PULSE 105; TEMP 36.7
[2020-04-10 19:25] VITALS: BP 114/75; PULSE 105; TEMP 36.7
--- NOTE | 2020-04-11 03:19 | W.OBNST ---
Date of service: 04/11/20 Time of Service: 03:19 NST Evaluation Reason for NST Reasons for Nonstress Test: DECREASED MOVEMENT Gestational Age Gestational Age in Weeks and Days: 37 Weeks and 1Days Test and Monitor Explained Test/Monitor Explained: Test Explained, Monitor Explained and Patient Verbalized Understanding Vital Signs Blood Pressure: 114/75 Pulse: 105 Temperature: 98.1 F Urine Results Urine Protein: Negative Urine Ketones: Negative Urine Glucose: Negative Urine Blood: Negative NST Information Date on Monitor: 04/10/20 Time on Monitor: 18:58 Date off Monitor: 04/10/20 Time off Monitor: 19:18 Total Time on Monitor: 20 NST Interventions: None Contraction Frequency: none NST Evaluation Patient States Movement: Present and Decreased FHR Baseline: 140 Variability: Moderate 6-25 bpm Accelerations: 15x15 Decelerations: None NST Results: Reactive Note NST Note Note: Karla reported during her visit today that she has not been feeling h ebaby move as much today. baby was active during NST NST Reviewed and Verified by: Jennifer Marin
[2020-04-11 03:20] VITALS: BP 114/75; PULSE 105; TEMP 36.7
== END 2020-04-10 19:25 | disposition home or self-care (01) ==
LOC: BCD 16:29 → OBS 16:43
PROVIDERS: PCP Family Medicine; Visit Provider Advanced Practice Midwife
DX: O36.8130 Decreased fetal movements, third trimester, not applicable or unspecified (principal); Z3A.37 37 weeks gestation of pregnancy
CPT/HCPCS: 59025

== ENCOUNTER 2020-04-29 02:08 | Outpatient (RCR) | payer MEDICAID, SELFPAY ==
[2020-04-10] MEDS: IRON SUCROSE COMPLEX 200 MG in Normal Saline 100 ML 440 MG IVPB (12:51)
[2020-04-10] MEDS: Normal Saline Flush 10 ML SYR IVP (12:51)
[2020-04-15] MEDS: IRON SUCROSE COMPLEX 200 MG in Normal Saline 100 ML 440 MG IVPB (12:53)
[2020-04-15] MEDS: Normal Saline Flush 10 ML SYR IVP (12:54)
[2020-04-22] MEDS: IRON SUCROSE COMPLEX 200 MG in Normal Saline 100 ML 440 MG IVPB (11:42)
[2020-04-22] MEDS: Normal Saline Flush 10 ML SYR IVP (11:46)
[2020-04-29] MEDS: Normal Saline Flush 10 ML SYR IVP (12:54)
[2020-04-29] MEDS: IRON SUCROSE COMPLEX 200 MG in Normal Saline 100 ML 440 MG IVPB (12:54)
== END 2020-05-03 23:59 | disposition home or self-care (01) ==
LOC: INF 02:08
PROVIDERS: PCP Family Medicine; Visit Provider Advanced Practice Midwife
DX: O99.013 Anemia complicating pregnancy, third trimester (principal); D64.9 Anemia, unspecified
CPT/HCPCS: 96365; J1756

== ENCOUNTER 2020-05-02 06:18 | Inpatient (IN) | payer MEDICAID, SELFPAY ==
[2020-05-02] VITALS (14 sets, daily range): BP systolic 105–117; BP diastolic 55–73; PULSE 67–103; RESP 16–20; TEMP 36.5–36.7; O2SAT 95–100
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
[2020-05-02] MEDS: Ondansetron O.D.T. 4 MG TABEF 8 MG PO (07:12)
[2020-05-02 07:19] LABS: HCT 35.8 % (36.0-46.0); HGB 11.3 g/dL (11.2-15.7); MCH 26.5 pg (27.0-33.0); MCHC 31.6 % (32.0-36.0); MCV 83.8 fL (80-95); MPV 10.4 fL (8.0-11.0); Platelet Count 227 10^3/uL (130-400); RBC 4.27 10^6/uL (3.93-5.22); RDW 18.6 % (11.7-14.6); RDW-SD 55.6 fL; WBC 10.19 10^3/uL (4.4-10.8)
--- NOTE | 2020-05-02 08:32 | W.OBDELIVERY ---
Date of service: 05/02/20 Time of Service: 08:15 OB Labor/ Delivery Information Baby A Delivery Delivery Method: Spontaneaous Presentation: Cephalic Cephalic Position: Vertex Vertex Position: Left Occipital Anterior Breech Position: N/A Cord Description-Baby A: 3 Vessels Amniotic Fluid: Meconium Estimated Blood Loss: 400 Delivery Outcome: Liveborn Transferred: Remains with Mother Note: After completing admission procedures pt to shower and labored H&K using the Cub for upper body support until SROM of meconium stained fluid, pt the moved to the tub, temp 98F, FHT 140's. Spontaneous urges to bear down began shortly thereafter, 2nd stage huddle completed, anterior lip manually reduced once vtx descended to +3/4 station, in kneeling position, right knee shifted upward to allow for delivery of anterior shoulder. Vigorous female infant lifted from water and placed in mother's arms then covered with warmed towels. Cord ceased pulsations, clamped then cut by FOB, 10 units of pitocin given IM, Leonardo placenta delivered intact with 3VC. Bonding time in tub for 15 minutes before moving to the bed, vaginal and perineal inspection reveals intact without laceration, excellent family bonding noted, apgars 8/9, weight 3475 gms Providers Nurse School Photographer: Elicia Rangel Nurse: Elicia Scott Nurse: Luz Leonardo Labor/Delivery Information Number of Babies in Womb: 1 Steroids Given: None Reason Steroids Not Administered: N/A Group Beta Strep: Negative Antibiotics Administered: No Rubella Status: Immune Blood Type: B+ Varicella Immunity: Nonimmune Maternal Complications: None Shoulder Dystocia: No Stages of Labor Onset of Labor Date: 05/02/20 Onset of Labor Time: 03:00 Complete Dilatation Date: 05/02/20 Complete Dilatation Time: 07:45 Labor - Stage 1 Duration: 0 minutes ROM Baby A: 05/02/20 ROM Baby A: 07:32 Infant Delivery Date-Baby A: 05/02/20 Infant Delivery Time-Baby A: 07:54 Labor Stage 2 Duration: 9 minutes Placenta Delivery Date-Baby A: 05/02/20 Placenta Delivery Time-Baby A: 08:00 Labor-Stage 3 Duration: 6 minutes Total Length of Labor-Baby A: 4 hours and 54 minutes Placenta Cultured: No Placenta Status: Delivered Baby A Gender: Female Gestational Status: Term (39-41.6 wks) Gestational Age in Weeks/Days: 40 Weeks and 2 Days weight: 7 lb 10.577 oz Weight Comment: 3475 gms Score-1 Minute Interval(Baby A) Heart Rate-1 minute: 100 BPM or Greater Respiratory Effort- 1 minute: Spontaneous/Strong Cry Muscle Tone-1 minute: Minimal Flexion/Extension Reflex Response-1 minute: Prompt Response Color-1 minute: Bluish Hands or Feet Score-5 Minute Interval(Baby A) Heart Rate- 5 minute: 100 BPM or Greater Respiratory Effort-5 minute: Spontaneous/Strong Cry Muscle Tone-5 minute: Active Movement Reflex Response-5 minute: Prompt Response Color-5 minute: Bluish Hands or Feet Procedure Procedures: Cord Blood Collection
[2020-05-02] MEDS: Oxytocin 10 UNITS/ML VIAL IM (10:19)
[2020-05-02] MEDS: Acetaminophen 325 MG TAB 650 MG PO (12:52)
[2020-05-02] MEDS: Ibuprofen 600 MG TAB PO (12:52)
[2020-05-03 03:44] LABS: COVID-19 RT-PCR UVMMC Result Negative (Negative)
[2020-05-03 05:43] VITALS: BP 103/62; PULSE 78; RESP 16; TEMP 36.7
[2020-05-03 06:49] LABS: HCT 32.6 % (36.0-46.0); HGB 10.2 g/dL (11.2-15.7); MCH 26.7 pg (27.0-33.0); MCHC 31.3 % (32.0-36.0); MCV 85.3 fL (80-95); MPV 10.4 fL (8.0-11.0); Platelet Count 258 10^3/uL (130-400); RBC 3.82 10^6/uL (3.93-5.22); RDW 18.6 % (11.7-14.6); RDW-SD 56.4 fL; WBC 11.47 10^3/uL (4.4-10.8)
[2020-05-03 08:20] VITALS: BP 99/58; PULSE 77; RESP 16; TEMP 36.6; O2SAT 100
[2020-05-03] MEDS: Varicella Virus Vaccine (Live) 0.5 ML SC (09:47)
--- NOTE | 2020-05-03 09:47 | W.PM.OBPNV1 ---
Date of service: 05/03/20 Time of Service: 09:47 Assessment and Plan Assessment and plan (1) Term delivered: Status: Acute Assessment and plan: A: PPD#1, nml recovery, going well Pt handling competently and comfortably Satisfied with experience P: Pt desires discharge today when baby is released Varicella vaccine prior to discharge Resume PNV after arriving at home F/up at 2 & 6 wks Plan Paraguard IUD insertion at 6 wks Plan 2nd Varicella vaccine at 6 wks Written instructions reviewed and given to pt Discussed concerns about FOB being deployed in 4 months Subjective Subjective Patient comments: No complaints, Pain well controlled, Tolerating diet and Flatus present baby status: Doing well, Nursing well, Rooming in and Strong Bonding Observed feeding status: Exclusively breast feeding Exam Physical Exam Vital signs: Temp Pulse Resp BP Pulse Ox 98.1 F 78 16 103/62 97 05/03/20 05:43 05/03/20 05:43 05/03/20 05:43 05/03/20 05:43 05/02/20 15:37 Vital Signs Reviewed: Yes Constitutional Constitutional: no acute distress HEENT Exam HEENT Exam: Normal Neck Exam Neck Exam: Normal Breast Exam Bilateral: Breast Exam: Normal and Soft Nipple Exam: Normal and Uninjured Respiratory Exam Respiratory Exam: Normal Cardiovascular Exam Cardiovascular Exam: Normal Abdominal Exam Abdomen: Other (soft, nontender) Fundal Exam Fundus: Below Umbilicus and Firm Rectal Exam Rectal Exam: Normal Exam Perineum: Intact and Normal Extremities Exam Extremity Exam: Normal and Full ROM Back/Spine/Pelvis Exam Back Exam: Normal Skin Exam Skin Exam: Normal Neurological Exam Neurological Exam: Normal Psychiatric Exam Psychiatric Exam: Normal (happy, tired) Results Hemoglobin/Hematocrit: Hgb 10.2 g/dL (11.2-15.7) L 05/03/20 06:40 Hct 32.6 % (36.0-46.0) L 05/03/20 06:40 Abnormal Lab Findings: Abnormal Labs 05/02/20 05/03/20 07:10 06:40 WBC 11.47 H RBC 3.82 L Hgb 10.2 L Hct 35.8 L 32.6 L MCH 26.5 L 26.7 L MCHC 31.6 L 31.3 L RDW 18.6 H 18.6 H
--- NOTE | 2020-05-03 09:53 | W.PM.OBDISCH ---
Date of service: 05/03/20 Time of Service: 09:53 DS: Diagnosis Discharge Diagnosis (1) Term delivered: Status: Acute Discharge Plan Disposition Patient Disposition: HOME Condition: Good Discharge Details Reason For Visit: RULE OUT LABOR Admit Date/Time: 05/02/20 06:18 Admit Provider: Elicia Rangel Attending Provider: Elicia Rangel Primary Care Provider: Ant Garcia [facility] Course Hospital Course: , nml PP course, desires discharge at PPD#1 Home Meds and New Rx's Prescriptions: No Action loratadine [Claritin] 10 mg tablet 10 mg PO DAILY PRNRF: 0 acetaminophen [Tylenol] 325 mg tablet 650 mg PO Q6H PRN (Reason: pain) RF: 0 prenat.vits,vivian,dvf-nten-zxuda Tablet 1 tab PO DAILY RF: 0 Discharge Instructions Additional Instructions: Please call [facility] on Monday to make your 2 week and 6 weeks special education administrator appointments. Your 2 week appointment can be either telehealth or in-person. Your 6 week appointment will be in person for an IUD insertion and 2nd chickenpox vaccination. When making the appointment, please tell the office coordinator receptionist you desire an hour long visit for the Paraguard insertion. Feel free to call for any questions or concerns at any time. Stand Alone Forms: BC Instructions, NB Instructions, BC Post Vaginal Deliver Activity:: Activity as Tolerated Equipment/Supplies:: No Equipment Needed Diet:: Normal Diet Discharge Orders Discharge Orders: Discharge Order (Routine); Ordered 05/03/20 Ordered By: Elicia Rangel OB:DS Summary Summary Vaginal Delivery Method: Spontaneaous Episiotomy Description: None Laceration Description: None Laceration Extension: N/A Contraception Discussed Contraception Discussed: Yes Contraceptive Plan: IUD (Insertion planned for 6 wks PP), Gender-Baby A: Female weight: 7 lb 10.577 oz Status at Discharge Functional status at discharge: independent ambulation Overall status at discharge: patient is progressing back to baseline Mental Status: mental status grossly normal Speech and Movement: speech and movement normal and speech clear Mood: congruent mood Affect: normal affect Exam Physical Exam Vital signs: Temp Pulse Resp BP Pulse Ox 98.1 F 78 16 103/62 97 05/03/20 05:43 05/03/20 05:43 05/03/20 05:43 05/03/20 05:43 05/02/20 15:37 Vital Signs Reviewed: Yes Constitutional Constitutional: no acute distress HEENT Exam HEENT Exam: Normal Neck Exam Neck Exam: Normal Breast Exam Bilateral: Breast Exam: Normal and Soft Respiratory Exam Respiratory Exam: Normal Cardiovascular Exam Cardiovascular Exam: Normal Abdominal Exam Abdomen: Other (soft, nontender) Fundal Exam Fundus: Below Umbilicus and Firm Rectal Exam Rectal Exam: Normal Exam Perineum: Intact and Normal Extremities Exam Extremity Exam: Normal and Full ROM Back/Spine/Pelvis Exam Back Exam: Normal Skin Exam Skin Exam: Normal Neurological Exam Neurological Exam: Normal Psychiatric Exam Psychiatric Exam: Normal (happy, tired) [facility] Medical History (Updated 05/03/20 @ 09:49 by Elicia Rangel) Benign phyllodes tumor of breast Contraception (04/04/14) Encounter for supervision of normal primigravida in third trimester, antepartum (06/21/16) Hx of urinary tract infection (06/21/16) Miscarriage within last 12 months Surgical History History of wisdom tooth extraction Hx of right breast biopsy Family History Grandmother Endometriosis MGM Father Alcohol abuse Brother Mental disorder Mother Renal cancer Ffvk-Aduf-Vjsm syndrome Thyroid cancer Social History Smoking/Tobacco Use Status: Current-Occasional Tobacco Type: cigarettes Smoking risk assessment performed?: Yes Alcohol Intake: never Drug use: Never Substance use type: does not use Household members: significant other and children Housing: apartment Number of Children: 1 current occupation: [employer] Pets and animals: Yes (currently cats have flees bites on pts arms. she says they have had them all summer. ) Pets and animals: cat(s) Working smoke detector in home: Yes Fire extinguisher in home: Yes Carbon monox detector in home: Yes Firearms in home: Yes Firearms unloaded and locked: No (top shelf of closet ) Do you feel safe at home: Yes Do you feel safe in your relationship?: Yes History History 3 Para 1 Hx # Term Pregnancies 0 Multiple births 0 Hx # Pregnancies 0 Ectopic pregnancies 0 AB induced 0 Hx Number of Living Children 1 AB spontaneous 1 Past Pregnancies Del. Date GA/Weeks # Outcome Route Wgt Sex Labor Lgth Anesthesia Location Prov Complic 08/02/16 40 No Successful vaginal 7 lb 13 oz Female 10 hrs local [facility] Delivery Date: 08/02/16 Doesn't remember much of the labor except for lots of vomiting, used only nitrous for pain. No stitches, no complications. Jennifer Morris DS: Data Vitals/I&O Vitals and I&O: Vital Signs Temperature 98.1 F 05/03/20 05:43 Pulse 78 05/03/20 05:43 Pulse Rhythm Regular 05/02/20 20:22 Respiratory Rate 16 05/03/20 05:43 Blood Pressure 103/62 05/03/20 05:43 Blood Pressure Mean 75 05/03/20 05:43 Pulse Oximetry 97 05/02/20 15:37 Oxygen Delivery Method Room Air 05/02/20 06:55 Oxygen Flow Rate 0 05/02/20 06:55 Pain Level 0 05/02/20 06:55 Intake & Output 05/02/20 05/02/20 05/03/20 11:59 23:59 11:59 Weight 157 lb Other: Urine Color Yellow Yellow Data Completed and Pending Labs on day of discharge: Labs from last 24 hours 05/03/20 05/02/20 06:40 06:50 WBC 11.47 H RBC 3.82 L Hgb 10.2 L Hct 32.6 L MCV 85.3 MCH 26.7 L MCHC 31.3 L RDW 18.6 H Plt Count 258 MPV 10.4 SARS-CoV-2 (PCR) Negative Nasopharyn COVID-19 PCR Not Applicable Ref Test Perform Site [facility] lab
== END 2020-05-03 14:50 | disposition home or self-care (01) | DRG 807 ==
PROVIDERS: Admitting Provider Advanced Practice Midwife; PCP Family Medicine; Visit Provider Advanced Practice Midwife
DX: O99.02 Anemia complicating childbirth (principal); Z37.0 Single live birth; D64.9 Anemia, unspecified; Z3A.40 40 weeks gestation of pregnancy; Z11.52 Encounter for screening for COVID-19
CPT/HCPCS: 36415; 85027; 86850; 86900; 86901; U0003; J2590

== ENCOUNTER 2021-07-22 10:42 | Outpatient (REF) | payer MEDICAID, SELFPAY ==
--- NOTE | 2021-07-22 10:30 | PAPFT_PTH ---
PATIENT: Karla Garcia LOC: N U#:[id number] AGE/SX: 26/F ROOM: RE07/22/[address]: BRIAN Woody : 1995 BED: DIS: 07/22/2021 SPEC #: [id number] RECD: 07/22/21 12:41 STATUS: TIFFANY RERober #: [id number] ERIK: 07/22/21 10:[address]: Christina Pryor DEPT: [facility] Cytology RECD BY: Izabela Barragan ENTERED: 07/22/21 12:41 SP TYPE: PAPFT OTHR DR: Ant Garcia, Tissues: 1 - CX/ENDOCX FOR PAP SMEARS Procedures: PAP THIN PREP/UVM Screening HPV DNA PROBE Comments: [id number]
== END 2021-07-22 10:43 | disposition home or self-care (01) ==
LOC: LBN 10:42
PROVIDERS: PCP Family Medicine; Visit Provider Nurse Practitioner Family
DX: Z12.4 Encounter for screening for malignant neoplasm of cervix (principal)
CPT/HCPCS: 88142; 87624

== ENCOUNTER 2021-09-22 15:54 | Outpatient (REF) | payer MEDICAID, SELFPAY | END 2021-09-22 15:55 | disposition home or self-care (01) | LOC: LBN 15:54 | PROVIDERS: PCP Family Medicine; Visit Provider Nurse Practitioner | DX: R30.0 Dysuria (principal) | CPT/HCPCS: 87077; 87086; 87186 ==

== ENCOUNTER 2021-12-01 02:43 | Outpatient (CLI) | payer MEDICAID, SELFPAY ==
[2021-12-01 14:36] LABS: Abs Immature Grans 0.02 10^3/uL (0.0-0.06); Absolute Basophil Count 0.04 10^3/uL (0.0-0.2); Absolute Lymphocyte Count 1.36 10^3/uL (1.2-3.4); Absolute Monocyte Count 0.52 10^3/uL (0.1-0.8); Absolute Neutrophil Count 5.97 10^3/uL (1.2-6.7); Basophils % 0.5; Eosinophils % 3.7; HCT 31.3 % (36.0-46.0); HGB 10.3 g/dL (11.2-15.7); Immature Grans % 0.2; Lymphocytes % 16.6; MCH 26.4 pg (27.0-33.0); MCHC 32.9 % (32.0-36.0); MCV 80 fL (80-95); Monocytes % 6.3; Neutrophils % 72.7; Platelet Count 273 10^3/uL (130-400); RDW 14.2 % (11.7-14.6); RDW-SD 41.4 fL; WBC 8.21 10^3/uL (4.4-10.8)
[2021-12-01 15:27] LABS: TSH (W/Ref FT4) 1.26 uIU/mL (0.36-3.74)
[2021-12-01 15:47] LABS: *AMPHETAMINES SCREEN URINE Negative (Negative); *BARBITURATES SCREEN URINE Negative (Negative); *BENZODIAZEPINES SCREEN URINE Negative (Negative); Cannabinoids THC Negative (Negative); Cocaine Screen,Urine Negative (Negative); METHADONE URINE SCREEN Negative (Negative); OPIATES URINE SCREEN Negative (Negative)
[2021-12-01 15:55] LABS: Tricyclic Antidepressants Negative (Negative)
[2021-12-01 21:02] LABS: Kit/Specimen SENT
[2021-12-03 09:00] LABS: Hepatitis B Surface Ag Negative (Negative)
[2021-12-03 09:41] LABS: HIV-1/2 Ag & Ab Screen Negative (Negative)
[2021-12-03 09:51] LABS: Hepatitis C Ab w Rflx HCV PCR Negative (Negative)
[2021-12-03 10:47] LABS: Rubella IgG Ab (UVM) Positive (See Note); Varicella IgG Antibody Positive (See Note)
[2021-12-06 15:30] LABS: Syphilis IgG w/Reflex Nonreactive (Nonreactive)
[2021-12-07 13:52] LABS: Toxoplasma Ab, IgG Negative (Negative); Toxoplasma Ab, IgM Negative (Negative); Toxoplasma IgG Value <3 IU/mL
[2021-12-09 12:40] LABS: Buprenorphine Negative ng/mL (Cutoff: 5.0); Norbuprenorphine Negative ng/mL (Cutoff: 2.5)
== END 2021-12-01 02:44 | disposition home or self-care (01) ==
LOC: LBO 02:43
PROVIDERS: PCP Family Medicine; Visit Provider Advanced Practice Midwife
DX: Z34.81 Encounter for supervision of other normal pregnancy, first trimester
CPT/HCPCS: 36415; 80307; 86787; 86803; 86850; 86900; 86901; 87340; 87389; 84443; 85025; 86762; 86777; 86778; 86780; 87086

== ENCOUNTER 2021-12-29 14:42 | Outpatient (REF) | payer MEDICAID, SELFPAY ==
[2021-12-30 15:38] LABS: Chlamydia Result Negative (Negative); GC Result Negative (Negative)
== END 2021-12-29 14:43 | disposition home or self-care (01) ==
LOC: LBN 14:42
PROVIDERS: PCP Family Medicine; Visit Provider Advanced Practice Midwife
DX: Z34.92 Encounter for supervision of normal pregnancy, unspecified, second trimester (principal); Z3A.15 15 weeks gestation of pregnancy
CPT/HCPCS: 87491; 87591

== ENCOUNTER → 2022-01-27 03:16 | Outpatient (CLI) | payer MEDICAID, SELFPAY ==
--- NOTE | 2022-01-27 07:30 | DI.US_ITS ---
Exam(s) US OB 2-3 TRIMESTER EXAM: US OB 2-3 TRIMESTER CLINICAL HISTORY: 18 wk anatomy survey,z34.90. TECHNIQUE: Transabdominal obstetrical ultrasound performed. COMPARISON: US US OB 2-3 TRIMESTER from 11/28/2019 FINDINGS: Number of fetuses: 1 position: BREECH heart rate: 154bpm Placental location: There is a grade 1 posterior placenta. The placental tip is 4.2 cm from the inte rnal os. No evidence of previa. Amniotic fluid index: 9.57cm ANATOMICAL SURVEY: Within normal limits. However, the kidneys and nose and lips were not ideal ly visualized on this examination. The patient should return for completion of the anatomic ev aluation. BIOMETRIC DATA: BPD: 4.2cm - 18weeks 5days HC: 16.13cm=19weeks AC: 13.8cm=19weeks 2days FL: 2.97cm=19weeks 1day Cisterna magna: 3.4mm Cerebellum: 1.85cm EFW: 276.62g, 0.61lb, 45.8% Composite Age: 19weeks JACQUELINE:06/23/2022 Heart Rate:154bpm Cervical length is 4.8 cm. IMPRESSION: 1. Single live intrauterine gestation as above. 2. The kidneys, nose and lips were not ideally visualized on this examination. The patient elizabeth uld return for completion of the anatomic evaluation. The remainder of the anatomic surv ey was unremarkable. DATA REPOSITORY:
== END ==
PROVIDERS: PCP Family Medicine; Visit Provider Advanced Practice Midwife
DX: Z34.92 Encounter for supervision of normal pregnancy, unspecified, second trimester (principal)
CPT/HCPCS: 76805

== ENCOUNTER → 2022-02-16 02:24 | Outpatient (CLI) | payer MEDICAID, SELFPAY ==
--- NOTE | 2022-02-16 06:45 | DI.US_ITS ---
Exam(s) US OB F/U FACIAL/LVOT/RVOT EXAM: US OB F/U FACIAL/LVOT/RVOT CLINICAL HISTORY: f/u placenta placement from 01/27,O44.02. COMPARISON: US US OB 2-3 TRIMESTER from 01/27/2022 TECHNIQUE: Transabdominal and transvaginal obstetrical ultrasound performed. FINDINGS: Sonographic images demonstrate a single intrauterine gestation in cephalic position. heart rate motion visualized Placenta appears left-sided.: Placental edge is measured at 4 cm from internal os. Cervical length 6.3 cm. Cm. Amniotic fluid: Amount of fluid is vision within normal limits. IMPRESSION: No evidence of placenta previa. DATA REPOSITORY:
== END ==
PROVIDERS: PCP Family Medicine; Visit Provider Advanced Practice Midwife
DX: O44.02 Complete placenta previa NOS or without hemorrhage, second trimester (principal)
CPT/HCPCS: 76815

== ENCOUNTER 2022-03-27 15:07 | Outpatient (CLI) | payer MEDICAID, SELFPAY ==
[2022-03-27 15:18] VITALS: BP 113/65; PULSE 108; TEMP 36.8
[2022-03-27 16:00] VITALS: BP 113/65; PULSE 108
--- NOTE | 2022-03-27 16:47 | W.OBNST ---
Date of service: 03/27/22 Time of Service: 16:47 NST Evaluation Reason for NST Reasons for Nonstress Test: LABOR Reason for NST Other: Pt leaking fluid, no ctx or bleeding. NST & vaginal exam. Gestational Age Gestational Age in Weeks and Days: 27 Weeks and 4Days Test and Monitor Explained Test/Monitor Explained: Test Explained, Monitor Explained and Patient Verbalized Understanding Vital Signs Blood Pressure: 113/65 Pulse: 108 Temperature: 98.2 F Urine Results Urine Protein: Negative Urine Ketones: Negative Urine Glucose: Negative Urine Blood: Negative NST Information Date on Monitor: 03/27/22 Time on Monitor: 15:50 Date off Monitor: 03/27/22 Time off Monitor: 16:28 Total Time on Monitor: 38 NST Interventions: PO Hydration Contraction Frequency: None NST Evaluation Patient States Movement: Present FHR Baseline: 145 Variability: Moderate 6-25 bpm Accelerations: 10x10 Decelerations: None NST Results: Reactive Note NST Note Note: Pt describes egg-white consistency clear vaginal mucous after earlier coitus today Tried to check her own cvx and became concerned she was dilated SVE: internal os is closed, external os flared to 2 cm, no presenting parting in pelvis No contractions per reactive NST appropriate for EGA Pt is with close-spaced pregnancies Counseled pt to avoid checking her own cvx and call CNM if concerned about PTL F/up at next scheduled PN appt next week. NST Reviewed and Verified by: Felicity Rangel
[2022-03-27 16:49] VITALS: BP 113/65; PULSE 108; TEMP 36.8
== END 2022-03-27 17:00 | disposition home or self-care (01) ==
LOC: BCD 15:13 → OBS 15:16
PROVIDERS: PCP Family Medicine; Visit Provider Advanced Practice Midwife
DX: O60.02 Preterm labor without delivery, second trimester (principal); O26.892 Other specified pregnancy related conditions, second trimester; Z3A.27 27 weeks gestation of pregnancy
CPT/HCPCS: 59025

== ENCOUNTER 2022-04-05 03:41 | Outpatient (CLI) | payer MEDICAID, SELFPAY ==
[2022-04-05 16:17] LABS: HCT 29.7 % (36.0-46.0); HGB 9.1 g/dL (11.2-15.7); MCH 24.6 pg (27.0-33.0); MCHC 30.6 % (32.0-36.0); MCV 80 fL (80-95); MPV 9.8 fL (8.0-11.0); Platelet Count 312 10^3/uL (130-400); RDW 12.9 % (11.7-14.6); RDW-SD 37.2 fL
[2022-04-05 16:22] LABS: Glucose,1 Hr (Glucola) 107 mg/dL (80-140)
== END 2022-04-05 03:42 | disposition home or self-care (01) ==
LOC: LBO 03:41
PROVIDERS: PCP Family Medicine; Visit Provider Advanced Practice Midwife
DX: Z34.93 Encounter for supervision of normal pregnancy, unspecified, third trimester (principal)
CPT/HCPCS: 36415; 82950; 85027

== ENCOUNTER 2022-06-02 16:28 | Outpatient (REF) | payer MEDICAID, SELFPAY ==
[2022-06-02 14:07] LABS: *AMPHETAMINES SCREEN URINE Negative (Negative); *BARBITURATES SCREEN URINE Negative (Negative); *BENZODIAZEPINES SCREEN URINE Negative (Negative); Cannabinoids THC Negative (Negative); Cocaine Screen,Urine Negative (Negative); METHADONE URINE SCREEN Negative (Negative); OPIATES URINE SCREEN Negative (Negative); Tricyclic Antidepressants Negative (Negative)
[2022-06-08 18:51] LABS: Buprenorphine Negative ng/mL (Cutoff: 5.0); Norbuprenorphine Negative ng/mL (Cutoff: 2.5)
== END 2022-06-02 16:29 | disposition home or self-care (01) ==
LOC: LBN 16:28
PROVIDERS: PCP Family Medicine; Visit Provider Advanced Practice Midwife
DX: Z34.93 Encounter for supervision of normal pregnancy, unspecified, third trimester (principal); Z36.85 Encounter for antenatal screening for Streptococcus B; Z3A.37 37 weeks gestation of pregnancy
CPT/HCPCS: 80307; 80348; 87081

== ENCOUNTER 2022-06-16 01:37 | Outpatient (RCR) | payer MEDICAID, SELFPAY ==
[2022-06-02] MEDS: Normal Saline Flush 10 ML SYR IVP (11:46)
[2022-06-02] MEDS: IRON SUCROSE COMPLEX 200 MG in Normal Saline 100 ML 440 MG IVPB (11:53)
[2022-06-08 10:17] LABS: HGB 8.4 g/dL (11.2-15.7)
[2022-06-08] MEDS: IRON SUCROSE COMPLEX 200 MG in Normal Saline 100 ML 440 MG IVPB (10:42)
[2022-06-08] MEDS: Normal Saline Flush 10 ML SYR IVP (10:42)
[2022-06-16] MEDS: Normal Saline Flush 10 ML SYR IVP (10:17)
[2022-06-16 10:22] LABS: HGB 9.1 g/dL (11.2-15.7)
[2022-06-16] MEDS: IRON SUCROSE COMPLEX 200 MG in Normal Saline 100 ML 440 MG IVPB (10:39)
== END 2022-07-01 23:59 | disposition home or self-care (01) ==
LOC: INF 01:37
PROVIDERS: PCP Family Medicine; Visit Provider Advanced Practice Midwife
DX: O99.013 Anemia complicating pregnancy, third trimester (principal)
CPT/HCPCS: 36415; 96365; 85018; J1756

== ENCOUNTER 2022-06-21 19:06 | Inpatient (IN) | payer MEDICAID, SELFPAY ==
[2022-06-21 18:45] VITALS: BP 122/70; PULSE 123; RESP 18; TEMP 36.7
--- NOTE | 2022-06-21 19:15 | HPE_ITS ---
Date of service: 06/21/22 Time of Service: 19:00 Assessment and Plan Assessment and plan (1) Premature rupture of membranes: Status: Acute Assessment and plan: A: 27 yo @ 39+6 wks PROM clear fluid, GBS neg Low risk for SD & PPH Category 1 tracing, afebrile, normotensive P: Admit to BC, CBC, T&S, COVID swab Pt states she would like expectant management at this time Will encourage rest through the night, Consider cervical ripening vs pitocin induction after 12 hrs if no labor Maternal tachycardia noted, will monitor OB-HPI Labor/Delivery History of Present Illness Reason for Visit: Prom at 39 Weeks Chief Complaint: Suspected Rupture of Membranes , Associated Signs and Symptoms of Suspected ROM: large gushes of fluids since 1744, no bleeding. JACQUELINE Calculator Estimated Delivery Date Method Current WG Current Estimate 06/22/22 LMP (Certain) 39w 6d Other Estimates 06/22/22 Ultrasound #1 39w 6d History of Present Expected Delivery Route/Plan - CNM FOB/ - Truong Thresher (3rd child together) BG -GBS neg Hopes for another waterbirth, Truong for labor support. Specific Issues/Plan 1. Taking Vyvanse and Wellbutrin for ADHD and depression/anxiety (PCP Rx) 1a. 01/27/22 takes only prn when she needs for motivation, discontinued wellbutrin when she ran out. 1b. Discontinued vyvanse. Plans to restart wellbutrin after . 2. Pt's mother has Jonh Alexandre Bowen syndrome, increased risk of cancer, skin lesions,pt accepts [facility] genetics consult 2a. Telehealth appt w/[facility] genetics done 12/28/21, on waiting list for Familial [facility] Program 3. Known CF negative, desires cfDNA screening: low prob x5, female; declines AFP 4. Accepts referral to [facility] for depression, maybe counseling referral; appt done 12/13 5. Has been handling cat litter, add Toxo IgM & IgG to labs: all negative 6. Anemia @ 11 wks Hgb 10.3/Hct 31.3; begin oral iron supplement 6a. 28 wk hgb 9.1, ferrous sulfate prescribed in the 1st trimester - Karla has not been taking regularly, she was encouraged to do so and will repeat HGB at 36 weeks 6b. iron infusions started 3/2- Hgb 8.4 06/08 7. incomplete anatomy, follow up US ordered- normal US, no previa 8. covid vaccinated, hasn't received most recent booster. Assessment: History Reviewed & Current Review of Systems Narrative: ROS completed and found noncontributory other then HPI PFSH All Active Problems (Updated 06/21/22 @ 19:40 by Felicity Rangel) Premature rupture of membranes (Acute) Anemia affecting (Acute) (Acute) Clinodactyly of toe (Acute) ADHD (Acute) Major depression (Chronic) Anxiety disorder (Acute) Family history of genetic disorder (Chronic) Mother with Dbvzj-Cgol-Ekngt syndrome, autosomal dominant Medical History (Updated 06/21/22 @ 19:40 by Felicity Rangel) 13 weeks gestation of 40 weeks gestation of Anemia affecting in second trimester Benign phyllodes tumor of breast Contraception (04/04/14) Encounter for supervision of normal primigravida in third trimester, antepartum (06/21/16) Hx of urinary tract infection (06/21/16) Miscarriage within last 12 months Positive test Term delivered Surgical History History of wisdom tooth extraction Hx of right breast biopsy Family History Grandmother Endometriosis MGM Father Alcohol abuse Brother Mental disorder Mother Renal cancer Shbf-Ayty-Ejlg syndrome Thyroid cancer Social History Smoking/Tobacco Use Status: Current-Occasional Tobacco Type: cigarettes Smoking risk assessment performed?: Yes Alcohol Intake: never Drug use: Never Substance use type: does not use Household members: significant other and children Housing: apartment Number of Children: 1 current occupation: del[employer] Pets and animals: Yes (currently cats have flees bites on pts arms. she says t hey have had them all summer. ) Pets and animals: cat(s) Working smoke detector in home: Yes Fire extinguisher in home: Yes Carbon monox detector in home: Yes Firearms in home: Yes Firearms unloaded and locked: No (top shelf of closet ) Do you feel safe at home: Yes Do you feel safe in your relationship?: Yes History History 4 Para 2 Hx # Term Pregnancies 2 Multiple births 0 Hx # Pregnancies 0 Ectopic pregnancies 0 AB induced 0 Hx Number of Living Children 2 AB spontaneous 1 Past Pregnancies Del. Date GA/Weeks # Preg Succ Route Wgt Sex Labor Lgth Anesth esia Location Prov Complic 08/02/16 40 No Yes vaginal 7 lb 13 oz Female 10 hrs local [facility] - [facility] 05/02/20 40 No Yes vaginal 7 lb 10.6 oz Female 4 hrs 54 min [facility] - Elicia Delivery Date: 08/02/16 Last Updated by: Felicity Rangel Doesn't remember much except for vomiting, nitrous for pain. No stitches, no complications. [facility] Delivery Date: 05/02/20 Last Updated by: Felicity Rangel Waterbirth, no troubles, Hector Gordon Thresher Meds Allergies and Home Medications Allergies Allergy/AdvReac Type Severity Reaction Status Date / Time seasonal Allergy Unknown Uncoded 06/17/22 14:48 Home Medications Medication Instructions Recorded Confirmed Type acetaminophen 325 mg tablet 650 mg PO Q6H PRN pain 08/09/19 06/17/22 History (Tylenol) loratadine 10 mg tablet (Claritin) 10 mg PO DAILY PRN 11/28/19 06/17/22 History multivitamin 1 tab PO DAILY 12/03/20 06/17/22 History ferrous sulfate 324 mg (65 mg 324 mg PO DAILY #60 tabs 12/01/21 06/17/22 Rx iron) tablet,delayed release Exam Physical Exam Vital signs: 122/70, pulse 123, resp 18, temp 98.1 Vital Signs Reviewed: Yes Constitutional Constitutional: no acute distress, average body habitus and cooperative Detailed Labor and Delivery Exam Dilation: 3 Effacement (%): 30 station: -3 Cervix position: posterior Consistency: medium AWTERMAN Score(Cervical Ripeness Score): 3 Amniotic Membrane Status: Ruptured Amniotic Fluid: Clear Pooling: Positive Nitrazine: Positive Ferning: Present Contraction Frequency(min): rare Fetus A Heart Rate Baseline: 150 Monitor Accelerations: 15 X 15 Monitor Decelerations: None Variability: Moderate (6-25 BPM) Categories: Category I Est. Weight: 7 lb 11.459 oz Est. Weight: 3500 gms Date of Membrane Rupture: 06/21/22 Time of Membrane Rupture: 17:45 HEENT Exam HEENT Exam: Normal Neck Exam Neck Exam: Normal Chest/Brest/Axilla Exam Chest Exam: Normal Breast Exam Breast Exam: Not Done Respiratory Exam Respiratory Exam: Normal Cardiovascular Exam Cardiovascular Exam: Normal Abdominal Exam Abdominal Exam: Normal (gravid, nontender) Rectal Exam Rectal Exam: Not Done Exam Exam: Normal (gross ROM) Extremities Exam Extremities Exam: Normal Back/Spine/Pelvis Exam Back Exam: Normal Pelvis Adequate: Yes (proven to ) Skin Exam Skin Exam: Normal Neurological Exam Neurological Exam: Normal Psychiatric Exam Psychiatric Exam: Normal Results Results Group Beta Strep: Negative Blood Type: B+ Rubella Status: Immune Varicella Immunity: Immune Risk Assessment Risk for Shoulder Dystocia Historical/Initial OB: NEGATIVE FOR: Pelvic Abnormality, Pre- BMI>30, Previous Shoulder Dystocia or Previous Macrosomia 40 Weeks: NEGATIVE FOR: EFW> 4500 gms, Maternal Weight Gain >40lb or Post Dates Increased Risk?: No Risk for Pre-Eclampsia Date Initiated/Initials: not indicated jk Yes, if one or more: NEGATIVE FOR: Hx Pre-E/Gest HTN, Chronic HTN, Multiple Gestation, Pre-gestational DM, Renal Disease, Systemic Lupus or APA Syndrome Yes, if 2 or more: NEGATIVE FOR: Nulliparity, Age>= 35 yrs, >10yr btwn pregnancies, BMI>30, ethinicty, Mother/Sister w/ Pre-E or Previous IUGR Risk for Post- Hemorrhage Initial: NEGATIVE FOR: Multiple Gestation, Previous PPH, Known Clotting Deficiency, Grand Multiparity or Anticoagulation At Risk?: No Counseled re: Active Management: Yes Risks Reviewed Risks Reviewed Upon Admission: Yes
[2022-06-21 19:39] VITALS: BP 122/70; PULSE 123; RESP 18; TEMP 36.7
[2022-06-21 20:24] LABS: Source Nasal/Nares
[2022-06-21 20:26] LABS: HCT 34.2 % (36.0-46.0); HGB 10.2 g/dL (11.2-15.7); MCH 23.4 pg (27.0-33.0); MCHC 29.8 % (32.0-36.0); MCV 78 fL (80-95); MPV 10.2 fL (8.0-11.0); Platelet Count 300 10^3/uL (130-400); RBC 4.36 10^6/uL (3.93-5.22); RDW 23.7 % (11.7-14.6); RDW-SD 60.6 fL; WBC 9.66 10^3/uL (4.4-10.8)
[2022-06-21 21:03] LABS: COVID-19 PCR Negative (Negative)
[2022-06-21 23:01] VITALS: BP 122/70; PULSE 123; RESP 18; TEMP 36.7
[2022-06-22] VITALS (11 sets, daily range): BP systolic 100–125; BP diastolic 58–72; PULSE 79–115; RESP 16–20; TEMP 36.4–36.6; O2SAT 99
--- NOTE | 2022-06-22 05:42 | W.PM.OBNL1 ---
Date of service: 06/22/22 Time of Service: 05:42 Pelvic Exam Dilation: 4 Effacement (%): 80 station: -1 Cervix Position: mid Consistency: medium Contractions Monitor Mode: External Contraction Frequency(min): q5 Intensity: Mild/Moderate Fetus A Monitor: External (US) Heart Rate Baseline: 150 Variability: Moderate (6-25 BPM) Categories: Category I Accelerations: 15 X 15 Decelerations: None Amniotic Membrane Status: Ruptured Assessment and Plan Assessment and plan (1) Premature rupture of membranes: Status: Acute Assessment and plan: A: PROM 12 hrs with spontaneous onset of early labor Progressed to 4/80% vtx -1 Category 1 tracing, GBS neg Hgb 10.2 on admit, up from 8.4 @ 36 wks, received iron infusions in past month P: Expectant management Comfort measures as pt desires Anticipate Objective Abnormal lab results 06/21/22 Range/Units 20:15 Hgb 10.2 L (11.2-15.7) g/dL Hct 34.2 L (36.0-46.0) % MCV 78 L (80-95) fL MCH 23.4 L (27.0-33.0) pg MCHC 29.8 L (32.0-36.0) % RDW 23.7 H (11.7-14.6) % Temp Pulse Resp BP 98.1 F 123 H 18 122/70 06/21/22 23:01 06/21/22 23:01 06/21/22 23:01 06/21/22 23:01 Laboratory Results WBC 9.66 10^3/uL (4.4-10.8) 06/21/22 20:15 RBC 4.36 10^6/uL (3.93-5.22) 06/21/22 20:15 Hgb 10.2 g/dL (11.2-15.7) L 06/21/22 20:15 Hct 34.2 % (36.0-46.0) L 06/21/22 20:15 MCV 78 fL (80-95) L 06/21/22 20:15 MCH 23.4 pg (27.0-33.0) L 06/21/22 20:15 MCHC 29.8 % (32.0-36.0) L 06/21/22 20:15 RDW 23.7 % (11.7-14.6) H 06/21/22 20:15 Plt Count 300 10^3/uL (130-400) 06/21/22 20:15 MPV 10.2 fL (8.0-11.0) 06/21/22 20:15 COVID-19 Source Nasal/Nares 06/21/22 19:25 SARS-CoV-2 (PCR) Negative (Negative) 06/21/22 19:25 Patient ABO/Rh B Positive 06/21/22 20:15 Antibody Screen NEGATIVE 06/21/22 20:15 Subjective Interval history since last seen: Slept until 0200, then rested and dozed until contraction increased 0400. Now feeling every 5 minute contractins that are starting to become uncomfortable.
[2022-06-22] MEDS: Ondansetron O.D.T. 4 MG TABEF 8 MG PO (05:55)
[2022-06-22] MEDS: Oxytocin 10 UNITS/ML VIAL IM (07:09)
[2022-06-22] MEDS: miSOPROStol 200 MCG TAB (07:24)
[2022-06-22] MEDS: Methylergonovine 0.2 MG/ML VIAL (07:25)
--- NOTE | 2022-06-22 08:22 | W.OBDELIVERY ---
Date of service: 06/22/22 Time of Service: 08:22 OB Labor/ Delivery Information Baby A Delivery Delivery Method: Spontaneaous Presentation: Cephalic Cephalic Position: Vertex Vertex Position: Left Occipital Anterior Breech Position: N/A Cord Description-Baby A: 3 Vessels Amniotic Fluid: Clear Estimated Blood Loss: 850 Delivery Outcome: Liveborn Transferred: Remains with Mother Note: Pt rested through the night, labor began 0400, pt progressed well and entered the tub after RN exam revealed 5-6 cm dilation 0645, category 1 tracing earlier with reassuring FHT per doppler intermittently. Once in the tub pt progressed to anterior lip with vtx @ +3 and strong involuntary pushing. Anterior lip manually reduced, 2nd stage huddle was completed and in hands and knees position in tub accomplished of a vigorous female over intact perineum, anterior shoulder delivered easily and infant to mother's arms immediately. Pitocin 10 units given IM, cord clamped and cut by FOB at 5 minutes, cord blood collected, Patterson placenta delivered in tub intact with 3VC. Pt assisted to bed for further assessment, large clot expressed with fundal massage, fundus firm but right of midline, straight cath done for 200 ml urine, miso 600 mcg given PO, further vaginal bleeding continued but slowed to an intermittent trickle. Vaginal sweep performed for a handful of small clots, 0.2 methergine IM given and lochia slowed to minimal with fundus quite firm in the midline. EBL 850 ml, pt remains hemodynamically stable. S2S with FOB during third stage stabilization, apgars 8/9, weight 3490 gms. Providers Nurse Fiber Optic Assembler: Felicity Rangel Nurse: Raya Baez Nurse: Maggie Juarez Labor/Delivery Information Steroids Given: None Reason Steroids Not Administered: N/A Group Beta Strep: Negative Antibiotics Administered: No Rubella Status: Immune Blood Type: B+ Varicella Immunity: Immune Shoulder Dystocia: No Stages of Labor Onset of Labor Date: 06/22/22 Onset of Labor Time: 02:30 Complete Dilatation Date: 06/22/22 Complete Dilatation Time: 07:04 Labor - Stage 1 Duration: 4 hours and 34 minutes ROM Baby A: 06/21/22 ROM Baby A: 17:45 ROM Total Time- Baby A: [id number] Delivery Date-Baby A: 06/22/22 Infant Delivery Time-Baby A: 07:06 Labor Stage 2 Duration: 2 minutes Placenta Delivery Date-Baby A: 06/22/22 Placenta Delivery Time-Baby A: 07:11 Labor-Stage 3 Duration: 5 minutes Total Length of Labor-Baby A: 4 hours and 36 minutes Placenta Cultured: No Placenta Status: Delivered Baby A Gender: Female Gestational Status: Term (39-41.6 wks) Gestational Age in Weeks/Days: 40 Weeks and 0 Days weight: 7 lb 11.106 oz Weight Comment: 3490 gms Score-1 Minute Interval(Baby A) Heart Rate-1 minute: 100 BPM or Greater Respiratory Effort- 1 minute: Spontaneous/Strong Cry Muscle Tone-1 minute: Active Movement Reflex Response-1 minute: Prompt Response Color-1 minute: Pallor or Cyanosis Total Score-1 minute: 8 Score-5 Minute Interval(Baby A) Heart Rate- 5 minute: 100 BPM or Greater Respiratory Effort-5 minute: Spontaneous/Strong Cry Muscle Tone-5 minute: Active Movement Reflex Response-5 minute: Prompt Response Color-5 minute: Bluish Hands or Feet Total Score- 5 minute: 9
[2022-06-22] MEDS: Ibuprofen 600 MG TAB PO (10:00)
[2022-06-22] MEDS: Acetaminophen 325 MG TAB 650 MG PO (10:00)
[2022-06-23 07:39] LABS: HCT 31.3 % (36.0-46.0); HGB 9.3 g/dL (11.2-15.7); MCH 23.4 pg (27.0-33.0); MCHC 29.7 % (32.0-36.0); MPV 10.4 fL (8.0-11.0); Platelet Count 295 10^3/uL (130-400); RBC 3.98 10^6/uL (3.93-5.22); RDW-SD 64.4 fL; WBC 10.69 10^3/uL (4.4-10.8)
[2022-06-23 08:14] LABS: MCV 79 fL (80-95)
[2022-06-23 08:15] LABS: RDW 24.1 % (11.7-14.6)
[2022-06-23 09:00] VITALS: BP 110/67; PULSE 97; RESP 16; TEMP 36.6; O2SAT 98
--- NOTE | 2022-06-23 10:12 | DSE_ITS ---
Date of service: 06/23/22 Time of Service: 10:12 DS: Diagnosis Discharge Diagnosis (1) Premature rupture of membranes: Status: Acute Asessment and Plan: 1. NVD and normal PP course 2. mild anemia will manage with foods high in iron and ferrous sulfate 3. Breast feeding well established 4. Reviewed PP warning signs and when to call provider cotton stripper 5. RTO in 2 and 6 weeks PP Discharge Plan Disposition Patient Disposition: Home Condition: Good Discharge Details Reason For Visit: Prom at 39 Weeks Admit Date/Time: 06/21/22 19:06 Admit Provider: Felicity Rangel Attending Provider: Felicity Rangel Primary Care Provider: Ant Garcia [facility] Course Hospital Course: Normal PP course after induction of labor due to PROM. Breast feeding is going well. Discharge hgb 9.3 and is asymptomatic. Plan to continue ferrous sulfate at home and reassess in 2 weeks. Will RTO at 2 and 6 weeks PP. KH Home Meds and New Rx's Prescriptions: Continued loratadine [Claritin] 10 mg tablet 10 mg PO DAILY PRN multivitamin Tablet 1 tab PO DAILY acetaminophen [Tylenol] 325 mg tablet 650 mg PO Q6H PRN (Reason: pain) ferrous sulfate 324 mg (65 mg iron) tablet,delayed release (DR/EC) 324 mg PO DAILY Qty: 60 4RF Discharge Instructions Instructions: Mastitis (GEN), Depression (GEN), Iron Rich Diet (GEN), Anemia (GEN) Stand Alone Forms: BC Instructions, BC Post Vaginal Deliver Activity:: Activity as Tolerated Equipment/Supplies:: No Equipment Needed Diet:: As Tolerated Discharge Orders Discharge Orders: Discharge Order (Routine); Ordered 06/23/22 Ordered By: Jennifer Pearl OB:DS Summary Summary Vaginal Delivery Method: Spontaneaous Episiotomy Description: None Laceration Description: None Laceration Extension: N/A Contraception Discussed Contraception Discussed: Yes, Infant Gender-Baby A: Female weight: 7 lb 11.106 oz Disposition of Baby A: Home Status at Discharge Functional status at discharge: independent ambulation Overall status at discharge: patient is back to baseline Mental Status: mental status grossly normal Speech and Movement: speech and movement normal Mood: congruent mood Affect: normal affect Time Spent with Patient providing and/or coordinating discharge services: Less than 30 minutes Exam Physical Exam Vital signs: Temp Pulse Resp BP Pulse Ox 97.9 F 98 H 16 106/67 99 06/22/22 20:00 06/22/22 20:00 06/22/22 20:00 06/22/22 20:00 06/22/22 15:33 Vital Signs Reviewed: Yes Constitutional Constitutional: no acute distress, average body habitus and cooperative HEENT Exam HEENT Exam: Normal Neck Exam Neck Exam: Normal (normal visual inspection) Respiratory Exam Respiratory Exam: Normal Cardiovascular Exam Cardiovascular Exam: Normal Abdominal Exam Abdomen: Other (normal exam) Fundal Exam Fundus: Below Umbilicus and Firm Comment: small lochia noted. KH Rectal Exam Rectal Exam: Not Done Exam Perineum: Intact and Normal Extremities Exam Extremity Exam: Normal (denies calf tenderness) and Full ROM Back/Spine/Pelvis Exam Back Exam: Normal Skin Exam Skin Exam: Normal Neurological Exam Neurological Exam: Normal Psychiatric Exam Psychiatric Exam: Normal PFSH All Active Problems Premature rupture of membranes (Acute) Anemia affecting (Acute) (Acute) Clinodactyly of toe (Acute) ADHD (Acute) Major depression (Chronic) Anxiety disorder (Acute) Family history of genetic disorder (Chronic) Mother with Mwuix-Mrfk-Bswga syndrome, autosomal dominant Medical History 13 weeks gestation of 40 weeks gestation of Anemia affecting in second trimester Benign phyllodes tumor of breast Contraception (04/04/14) Encounter for supervision of normal primigravida in third trimester, antepartum (06/21/16) Hx of urinary tract infection (06/21/16) Miscarriage within last 12 months Positive test Term delivered Surgical History History of wisdom tooth extraction Hx of right breast biopsy Family History Grandmother Endometriosis MGM Father Alcohol abuse Brother Mental disorder Mother Renal cancer Zxwf-Zpxo-Nnuu syndrome Thyroid cancer Social History Smoking/Tobacco Use Status: Current-Occasional Tobacco Type: cigarettes Smoking risk assessment performed?: Yes Alcohol Intake: never Drug use: Never Substance use type: does not use Household members: significant other and children Housing: apartment Number of Children: 1 current occupation: [employer] Pets and animals: Yes (currently cats have flees bites on pts arms. she says they have had them all summer. ) Pets and animals: cat(s) Working smoke detector in home: Yes Fire extinguisher in home: Yes Carbon monox detector in home: Yes Firearms in home: Yes Firearms unloaded and locked: No (top shelf of closet ) Do you feel safe at home: Yes Do you feel safe in your relationship?: Yes History History 4 Para 2 Hx # Term Pregnancies 2 Multiple births 0 Hx # Pregnancies 0 Ectopic pregnancies 0 AB induced 0 Hx Number of Living Children 2 AB spontaneous 1 Past Pregnancies Del. Date GA/Weeks # Preg Succ Route Wgt Sex Labor Lgth Anesth esia Location Prov Complic 08/02/16 40 No Yes vaginal 7 lb 13 oz Female 10 hrs local [facility] 05/02/20 40 No Yes vaginal 7 lb 10.6 oz Female 4 hrs 54 min [facility] Delivery Date: 08/02/16 Last Updated by: Felicity Rangel Doesn't remember much except for vomiting, nitrous for pain. No stitches, no complications. [facility] Delivery Date: 05/02/20 Last Updated by: Felicity Rangel Waterbirth, no troubles, Hector Gordon Thresher DS: Data Vitals/I&O Vitals and I&O: Vital Signs Temperature 97.9 F 06/22/22 20:00 Temperature Source Oral 06/22/22 20:00 Pulse 98 H 06/22/22 20:00 Pulse Rhythm Regular 06/22/22 20:00 Respiratory Rate 16 06/22/22 20:00 Respiratory Depth Normal 06/22/22 20:00 Blood Pressure 106/67 06/22/22 20:00 Blood Pressure Mean 80 06/22/22 20:00 Pulse Oximetry 99 06/22/22 15:33 Intake & Output 06/22/22 06/22/22 06/23/22 11:59 23:59 11:59 Output Total 1550 / 1550 Balance -1550 / -1550 Output: Urine 600 / 600 Emesis 100 / 100 Blood 850 / 850 Other: Urine Color Yellow Yellow Data Completed and Pending Labs on day of discharge: Labs from last 24 hours 06/23/22 07:10 WBC 10.69 RBC 3.98 Hgb 9.3 L Hct 31.3 L MCV 79 L MCH 23.4 L MCHC 29.7 L RDW 24.1 H Plt Count 295 MPV 10.4
== END 2022-06-23 12:55 | disposition home or self-care (01) | DRG 807 ==
PROVIDERS: Admitting Provider Advanced Practice Midwife; PCP Family Medicine; Visit Provider Advanced Practice Midwife
DX: O42.02 Full-term premature rupture of membranes, onset of labor within 24 hours of rupture (principal); Z37.0 Single live birth; O99.344 Other mental disorders complicating childbirth; F41.8 Other specified anxiety disorders; O99.02 Anemia complicating childbirth; D64.9 Anemia, unspecified; O99.334 Smoking (tobacco) complicating childbirth; F17.210 Nicotine dependence, cigarettes, uncomplicated; Z3A.40 40 weeks gestation of pregnancy
CPT/HCPCS: 36415; 85027; 86850; 86900; 86901; 87635; J2210; J2590

== ENCOUNTER 2023-01-19 11:14 | Outpatient (REF) | payer MEDICAID, SELFPAY | END 2023-01-19 11:15 | disposition home or self-care (01) | LOC: LBN 11:14 | PROVIDERS: PCP Family Medicine; Visit Provider Advanced Practice Midwife | DX: N89.8 Other specified noninflammatory disorders of vagina (principal); N92.6 Irregular menstruation, unspecified | CPT/HCPCS: 87480; 87510; 87660 ==